=== PATIENT | male | born 2000 | race Two or more races ===

== ENCOUNTER 2023-02-25 08:23 | Emergency (ER) | payer OTHER ==
[~2023-02-25] VITALS: Ht 185.4 cm; Wt 97.7 kg
[2023-02-25 09:40] VITALS: BP 115/73; PULSE 94; RESP 18; O2SAT 98
[2023-02-25] MEDS ORDERED: IBUPROFEN 800 MG TAB PO ONE (10:15)
[2023-02-25] MEDS ORDERED: cefTRIAXone SOD 1,000 MG VL IM ONE (10:15)
[2023-02-25] MEDS ORDERED: TETANUS-DIPTH-ACEL PERTUSSIS 0.5ML SYR Tdap IM ONE (10:15)
[2023-02-25 10:27] VITALS: TEMP 98.6
[2023-02-25] MEDS ORDERED: CEPH500C PO (10:35)
[2023-02-25] MEDS ORDERED: IBUP-1456 PO (10:35)
== END 2023-02-25 10:45 | disposition home or self-care (01) ==
LOC: ER 08:23
DX: S62.637A Displaced fracture of distal phalanx of left little finger, initial encounter for closed fracture (principal); X58.XXXA Exposure to other specified factors, initial encounter; Y93.89 Activity, other specified; Y92.89 Other specified places as the place of occurrence of the external cause; Y99.8 Other external cause status
CPT/HCPCS: 12002; 73130; 90471; 90715; 96372; 99284; J0696